=== PATIENT | male | born 1980 | race Caucasian/White ===

== ENCOUNTER 2021-09-01 18:28 | Emergency (ER) | payer OTHER ==
[2021-09-01 19:33] VITALS: TEMP 97.9
[2021-09-01] MEDS ORDERED: TRIAMCINOLONE ACET 40MG/1ML VIAL IM ONE (20:02)
[2021-09-01 20:34] LABS: BASO % 0.2 % (0-2.0); HEMATOCRIT 44.7 % (35.4-49); HEMOGLOBIN 14.7 GM/dL (11.7-16.9); LYMPH % 9.4 % (8-40); MCH 26.5 pg (25.7-33.7); MCHC 32.9 g/dl (32.0-35.9); MEAN CELL VOLUME 80.6 fl (80-96); MEAN PLT VOLUME 7.5 fl (7.5-11.1); MONO % 7.3 % (3.8-10.2); NEUT % 78.1 % (42.8-82.8); PLATELET COUNT 299 10^3/uL (134-434); RBC 5.54 M/mm3 (4.00-5.60); RDW 14.4 % (11.9-15.9); WHITE BLOOD COUNT 14.3 K/mm3 (4.0-10.0)
[2021-09-01 20:55] LABS: CALCIUM 9.1 mg/dL (8.5-10.1)
[2021-09-01 20:56] LABS: ALBUMIN 4.2 g/dl (3.4-5.0); BLOOD UREA NITROGEN 16.4 mg/dL (7-18)
[2021-09-01 21:00] LABS: TOT PROT 7.6 g/dl (6.4-8.2)
[2021-09-01 21:01] LABS: BILIRUBIN,TOTAL 0.4 mg/dL (0.2-1)
[2021-09-01 21:23] LABS: SYPHILIS W/ RPR CONF NON-REACTIVE (NONREACTIVE)
[2021-09-01 21:44] VITALS: BP 132/78; PULSE 87
[2021-09-01 21:52] LABS: HIV INTERPRETATION NEGATIVE (NEGATIVE)
== END 2021-09-01 22:21 | disposition home or self-care (01) ==
LOC: JERFT 18:28 → JER 18:28 → JERFT 22:21
PROC: 3E023GC Introduction of Other Therapeutic Substance into Muscle, Percutaneous Approach (ICD-10-PCS; principal; 2021-09-01)
DX: R21 Rash and other nonspecific skin eruption (principal)
CPT/HCPCS: 36415; 80053; 85025; 86780; 87389; 87491; 87591; 96372; 99284-25